=== PATIENT | male | born 1955 | race Caucasian/White ===

== ENCOUNTER → 2018-03-09 | Day surgery (SDC) | payer OTHER ==
[2018-03-02 14:18] VITALS: Ht 180.3 cm; Wt 136.4 kg
[~2018-03-09] VITALS: Ht 180.3 cm; Wt 136.4 kg
[~2018-03-09] MED LIST: ASPECOTC PO; CETI10CA PO; ENDOSCOPIC MARKER 5 ML SYR ONE; FURO-85 PO; LIDOCAINE HCL 2% 2 ML VIAL (20MG/ML) ONE; LOSA1TAB38 PO; NIFE60TA66 PO; PROPOFOL IV EMULSION 10 MG/ML 20 ML VIAL ONE; SODIUM CHLORIDE 0.9% 500ML 500 ML IV ONE
--- NOTE | 2018-03-09 14:55 | Endo History and Physical ---
History & Physical Date of Service: Mar 09, 2018. Chief Complaint: rectal bleeding Referring Physician: Dr. Ruperto Gracia History of Present Illness 62 yo CM who presents for colonoscopy secondary to rectal bleeding. Past Surgical History Hx Cardiac Surgery: No Hx Internal Defibrillator: No Hx Pacemaker: No Hx Abdominal Surgery: Yes (TONI, ) Hx of Implantable Prosthesis: No Hx Cancer Surgery: No Hx Thoracic Surgery: No Hx Orthopedic: No Hx Urinary Tract Surgery: No Family History Polyp Social History Smoking Status: Current Every Day Smoker Hx Substance Use: No Hx Alcohol Use: Yes (DRINKS 5-6 BEERS A WEEK) Allergies Coded Allergies: No Known Allergies (Verified , 03/09/18) Current Medications Reported Home Medications Medications Dose Route/Sig Max Daily Dose Days Date Category Zyrtec Allergy (Cetirizine Hcl) 10 Mg Cap 10 Mg PO DAILY 03/09/18 Reported Aspirin 325 Mg Tab 325 Mg PO UD PRN 03/02/18 Reported Nifedipine Er (Nifedipine) 60 Mg Tab 1 Tab PO DAILY 30 03/02/18 Reported Cozaar (Losartan Potassium) 100 Mg Tab 1 Tab PO DAILY 30 03/02/18 Reported Lasix (Furosemide) 20 Mg Tab 1 Tab PO DAILY 90 03/02/18 Reported Vital Signs Weight (Kilograms): 136.36 Height (Feet): 5 Height (Inches): 11 Date Time Temp Pulse Resp B/P (MAP) Pulse Ox O2 Delivery O2 Flow Rate FiO2 03/09/18 14:22 36.5 72 20 132/89 (103) 97 Room Air Physical Exam General Appearance: WD/WN, no apparent distress Respiratory/Chest: Auscultation: breath sounds normal Cardiovascular: Heart Auscultation: RRR Abdomen: Bowel Sounds: normal Inspection & Palpation: soft, non-distended, no tenderness, guarding & rebound Assessment and Plan Assessment: 62 yo CM who presents for colonoscopy secondary to rectal bleeding. Plan: Proceed with colonoscopy.
--- NOTE | 2018-03-09 16:26 | Anesthesiology Progress Note ---
Anesthesia Post Op Note Date & Time Mar 09, 2018 at 16:26 Vital Signs Pain Intensity: 0 Vital Signs Past 12 Hours Date Time Temp Pulse Resp B/P (MAP) Pulse Ox O2 Delivery O2 Flow Rate FiO2 03/09/18 16:22 86 16 149/96 (113) 97 Room Air 03/09/18 14:22 36.5 72 20 132/89 (103) 97 Room Air Notes Mental Status: alert / awake / arousable, participated in evaluation Pt Amnestic to Procedure: Yes Nausea / Vomiting: adequately controlled Pain: adequately controlled Airway Patency, RR, SpO2: stable & adequate BP & HR: stable & adequate Hydration State: stable & adequate Anesthetic Complications: no major complications apparent
--- NOTE | 2018-03-09 16:29 | GI REPORT ---
Patient Name: Ruperto Apple Procedure Date: 03/09/2018 3:25 PM Date of : 1955 Admit Type: Outpatient Age: 62 Gender: Male Attending MD: Arturo New DO Procedure: Colonoscopy Providers: Arturo New DO Referring MD: Ruperto Gracia Indications: Rectal bleeding Medicines: Monitored Anesthesia Care Complications: No immediate complications. Estimated Blood Loss: Estimated blood loss: none. Procedure: Pre-Anesthesia Assessment: - Prior to the procedure, a History and Physical was performed, and patient medications and allergies were reviewed. The patient's tolerance of previous anesthesia was also reviewed. The risks and benefits of the procedure and the sedation options and risks were discussed with the patient. All questions were answered, and informed consent was obtained. Prior Anticoagulants: The patient has taken aspirin, last dose was 1 day prior to procedure. ASA Grade Assessment: III - A patient with severe systemic disease. After reviewing the risks and benefits, the patient was deemed in satisfactory condition to undergo the procedure. After I obtained informed consent, the scope was passed under direct vision. Throughout the procedure, the patient's blood pressure, pulse, and oxygen saturations were monitored continuously. The scope was introduced through the anus and advanced to the cecum, identified by appendiceal orifice and ileocecal valve. The colonoscopy was performed with moderate difficulty due to a tortuous colon and the patient's body habitus. Procedure was 40 minutes in duration, over twice the length of normal colonoscopy. Successful completion of the procedure was aided by changing the patient to a prone position. The patient tolerated the procedure well. The quality of the bowel preparation was good. The ileocecal valve and the appendiceal orifice were photographed. Findings: The perianal and digital rectal examinations were normal. A 10 mm polypoid lesion was found in the transverse colon approximately 100 cm from the anal verge. The lesion was semi-sessile. No bleeding was present. Biopsies were taken with a cold forceps for histology. Area was tattooed with an injection of 2 mL of Danielle ink just distal to the lesion. A 10 mm polypoid lesion was found in the transverse colon approximately 90 cm from the anal verge. The lesion was semi-sessile. No bleeding was present. Biopsies were taken with a cold forceps for histology. Area was tattooed with an injection of 3 mL of Danielle ink just distal to the lesion. Three sessile polyps were found in the sigmoid colon and descending colon. The polyps were 5 to 10 mm in size. These polyps were removed with a hot snare. Resection and retrieval were complete. Localized severe inflammation characterized by erythema, loss of vascularity and confluent ulcerations was found in the recto-sigmoid colon. Biopsies were taken with a cold forceps for histology. Several random biopsies were obtained with cold forceps for histology in the descending colon, in the transverse colon and in the ascending colon. Fluid aspiration for Stool studies was performed in the entire colon. Impression: - Rule out malignancy, polypoid lesion in the transverse colon. Biopsied. Tattooed. - Rule out malignancy, polypoid lesion in the transverse colon. Biopsied. Tattooed. - Three 5 to 10 mm polyps in the sigmoid colon and in the descending colon, removed with a hot snare. Resected and retrieved. 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 Biopsied. - Several random biopsies were obtained in the descending colon, in the transverse colon and in the ascending colon. - Fluid aspiration was performed. Recommendation: - Resume previous diet. - Use prednisone 40 mg PO once a day for 1 week, then decrease by 5 mg every week for a total 8 week taper. - Repeat colonoscopy in 3 months to assess disease activity. - Return to GI office at appointment to be scheduled. Arturo New DO 03/09/2018 4:28:34 PM This report has been signed electronically. Note Initiated On: 03/09/2018 3:25 PM Number of Addenda: 0 I attest to the content of the Intraoperative Record and orders documented therein, exceptions below {[id number]}
--- NOTE | 2018-03-09 16:37 | Discharge Instructions ---
Endoscopy Patient Instructions Date / Procedure(s) Performed Mar 09, 2018. Colonoscopy Allergy Information Coded Allergies: No Known Allergies (Verified , 03/09/18) Discharge Date / Findings Mar 09, 2018. Ulcerative proctosigmoiditis Colon polyps (3 removed) Colon polyps (2 tattooed and biopsied) Random colon biopsies Stool studies Medication Instructions Stopped Medication(s): last dose ASA 5-6 days ago 1) Prednisone 40mg by mouth daily for 7 days, then 35 mg by mouth daily for 7 days, then decrease by 5 mg every week until finished (Total 8 week taper). 2) OK to resume all medications today as prescribed Reported Home Medications Medications Dose Route/Sig Max Daily Dose Days Date Category Zyrtec Allergy (Cetirizine Hcl) 10 Mg Cap 10 Mg PO DAILY 03/09/18 Reported Aspirin 325 Mg Tab 325 Mg PO UD PRN 03/02/18 Reported Nifedipine Er (Nifedipine) 60 Mg Tab 1 Tab PO DAILY 30 03/02/18 Reported Cozaar (Losartan Potassium) 100 Mg Tab 1 Tab PO DAILY 30 03/02/18 Reported Lasix (Furosemide) 20 Mg Tab 1 Tab PO DAILY 90 03/02/18 Reported Provider Instructions Activity Restrictions - No exercising or heavy lifting for 24 hours. - Do not drink alcohol the day of the procedure. - Do not drive a car or operate machinery until the day after the procedure. - Do not make any important decisions or sign important papers in 24 hours after the procedure. Following Day: - Return to full activity which may include returning to work/school. Diet Start your diet with liquids and light foods (jello, soup, juice, toast). Then eat your usual diet if not nauseated. Treatment For Common After Affects For mild abdominal pain, bloating, or excessive gas: - Rest - Eat lightly - Lie on right side Follow-Up Information Follow-up in our office in 2 weeks. Anesthesia Information What You Should Know You have had a procedure that required some medicine to reduce anxiety and discomfort. This treatment is called moderate sedation. After receiving the treatment, you may be sleepy, but you will be able to breathe on your own. The effects of the treatment may last for several hours. Follow these instructions along with Activity/Diet recommendations noted above: * Do NOT do anything where dizziness or clumsiness would be dangerous. * Rest quietly at home today, then you can be up and about tomorrow. * Have a responsible person stay with you the rest of today. * You may have had an I.V. today. If so, you may take the dressing off later today. Recommendations Call your doctor if: * Trouble breathing * Continuous vomiting for more than 24 hours * Temperature above 101 degrees * Severe abdominal pain or bloating * Pain not relieved by pain medicine ordered * There is increased drainage or redness from any incision * A large amount of rectal bleeding greater than 2-3 tablespoons. (If you had a polyp/s removed or have hemorrhoids, a small amount of blood - from the rectum is to be expected.) * You have any unanswered questions or concerns. IN THE EVENT OF A SERIOUS EMERGENCY, GO TO THE NEAREST EMERGENCY ROOM Your discharge instructions were prepared by provider Arturo New. Patient Instructions Signature Page Ruperto Apple Patient (or Guardian) Signature/Date: I have read and understand the instructions given to me by my caregivers. Caregiver/RN/Doctor Signature/Date: The above-named patient and/or guardian has received patient instructions on this date. + Original Patient Signature Page (only) stays with chart. Please make copy for patient.
[2018-03-09 16:44] VITALS: BP 151/97; PULSE 82; O2SAT 98
== END | disposition home or self-care (01) ==
LOC: C.GI 13:43
PROVIDERS: ATTEND Internal Medicine
DX: K62.5 Hemorrhage of anus and rectum (principal); D12.6 Benign neoplasm of colon, unspecified; K52.9 Noninfective gastroenteritis and colitis, unspecified; I10 Essential (primary) hypertension; E11.9 Type 2 diabetes mellitus without complications; Z90.49 Acquired absence of other specified parts of digestive tract; Z83.71 Family history of colonic polyps; F17.200 Nicotine dependence, unspecified, uncomplicated; Z79.82 Long term (current) use of aspirin; Z79.899 Other long term (current) drug therapy

== ENCOUNTER → 2018-03-12 | Outpatient (CLI) | payer OTHER ==
[~2018-03-12] MED LIST changes: -ENDOSCOPIC MARKER 5 ML SYR ONE; -LIDOCAINE HCL 2% 2 ML VIAL (20MG/ML) ONE; -PROPOFOL IV EMULSION 10 MG/ML 20 ML VIAL ONE; -SODIUM CHLORIDE 0.9% 500ML 500 ML IV ONE
[2018-03-12 13:20] LABS: BASO % 0.1 %; BASO ABS # 0.01 K/uL (0-0.2); EOS % 0.1 %; EOS ABS # 0.01 K/uL (0-0.5); HEMATOCRIT 43.5 % (42-52); HEMOGLOBIN 14.4 g/dL (14.0-18.0); IG# 0.07 K/uL (0.00-0.02); LYMPH % 11.1 %; LYMPH ABS # 1.69 K/uL (1.2-3.4); MEAN CELL VOLUME 90.1 fL (80-100); MEAN CORPUSCULAR HEMOGLOBIN 29.8 pg (25-34); MEAN CORPUSCULAR HGB CONC 33.1 g/dl (32-36); MEAN PLATELET VOLUME 10.2 fL (7.4-10.4); MONO % 5.5 %; MONO ABS # 0.83 K/uL (0.11-0.59); NEUT % 82.7 %; NEUT ABS # 12.59 K/uL (1.4-6.5); PLATELET COUNT 366 K/uL (130-400); RED CELL DISTRIBUTION WIDTH CV 13.8 % (11.5-14.5); RED CELL DISTRIBUTION WIDTH SD 45.2 fL (36.4-46.3)
[2018-03-12 14:14] LABS: ALBUMIN 3.6 gm/dl (3.4-5.0); ALT/SGPT 30 U/L (12-78); AST/SGOT 11 U/L (15-37); BLOOD UREA NITROGEN 11 mg/dl (7-18); CALCIUM 8.8 mg/dl (8.5-10.1); CARBON DIOXIDE 25 mmol/L (21-32); CREATININE 1.14 mg/dl (0.60-1.40); GLUCOSE 114 mg/dl (70-99); POTASSIUM 3.2 mmol/L (3.5-5.1); SODIUM 138 mmol/L (136-145)
[2018-03-12 14:17] LABS: ALKALINE PHOSPHATASE 131 U/L (45-117); CHOLESTEROL 210 mg/dl (0-200); LDL CHOLESTEROL CALCULATED 142 mg/dl; TOTAL PROTEIN 7.7 gm/dl (6.4-8.2)
== END | disposition home or self-care (01) ==
LOC: C.LABMFLN 08:16
PROVIDERS: ATTEND Internal Medicine
DX: E78.5 Hyperlipidemia, unspecified (principal); D12.6 Benign neoplasm of colon, unspecified; I10 Essential (primary) hypertension; K92.2 Gastrointestinal hemorrhage, unspecified; K51.30 Ulcerative (chronic) rectosigmoiditis without complications; R10.9 Unspecified abdominal pain

== ENCOUNTER → 2018-03-16 | Outpatient (CLI) | payer OTHER ==
[~2018-03-16] MED LIST changes: +OPTIRAY 320 IV PRN
--- NOTE | 2018-03-16 14:47 | DIAGNOSTIC IMAGING REPORT ---
ABDOMEN AND PELVIS CT WITH IV AND ORAL CONTRAST CT DOSE: 1098.14 mGycm HISTORY: Acute generalized abdominal pain with rectal bleeding. ABDOMINAL CRAMPING TECHNIQUE: Multiaxial CT images of the abdomen and pelvis were performed following the use of intravenous and oral contrast. A dose lowering technique was utilized adhering to the principles of ALARA. COMPARISON STUDY: None. FINDINGS: Pleural-based nodules of the posterior basal segment right lower lobe measure up to 6 mm. Additional nonpleural-based nodules of the basal right lower lobe measure up to 3 mm. 2 mm solid nodule of the right middle lobe. 4 mm solid nodule of the inferior segment lingula. 2 mm solid nodule of the basal left lower lobe. No pneumatosis or pneumoperitoneum. Coronary arterial calcifications are noted. The imaged inferior cardiac chambers are otherwise unremarkable. Prior cholecystectomy. The liver, spleen, pancreas and left adrenal gland are unremarkable. 8 mm nodule of the medial limb right adrenal gland is indeterminate and soft tissue attenuating. Kidneys, ureters and bladder are unremarkable. Prostate is mildly enlarged with central calcifications. Soft tissues are unremarkable. No bowel obstruction or focal bowel wall thickening. Mildly prominent perirectal fat and vasculature is noted with mild circumferential rectal distal sigmoid colon wall thickening. Scattered perirectal lymph nodes measure up to 5 mm with lymph nodes about the mid to distal sigmoid colon measuring up to 7 mm. Nondistention of the sigmoid colon with out evidence of acute inflammatory changes. No ascites. Normal appendix. Soft tissues are unremarkable. Bones appear intact. Healed chronic right-sided rib fractures. IMPRESSION: 1. No acute intra-abdominal or intrapelvic abnormality identified. 2. Mild circumferential wall thickening of the rectum and distal sigmoid colon with mildly prominent perirectal and pericolonic vasculature and scattered lymph nodes, suggesting chronic inflammatory changes. Correlate with colonoscopy findings. No pneumoperitoneum or pneumatosis. 3. Prior cholecystectomy. 4. Scattered solid noncalcified nodules of the lung bases measuring up to 6 mm. Please refer to below summary of Fleischner criteria recommendations for follow-up of incidental CT nodules (Daniel Cornejo, Guidelines for management of small pulmonary nodules detected on CT scans: A statement from the Fleischner Society, Radiology 237: [phone].) SOLID NODULES Multiple nodules size: <6 mm * Low risk patients: no routine follow-up * high risk patients: optional CT at 12 months Multiple nodules size: 6-8 mm * Low risk patients: follow-up at 3-6 months, then consider further follow-up at 18-24 months * high risk patients: follow-up at 3-6 months, then at 18-24 months if no change Note: newly detected indeterminate nodule in persons 35 years of age or older. * Low risk patients: minimal or absent history of smoking and/or other known risk factors * high risk patients: history of smoking or of other known risk factors (e.g. first degree relative with lung cancer, or exposure to asbestos, radon, uranium) * if a nodule up to 8 mm is partly solid or is ground glass further follow-up is required after 24 months to exclude possible slow growing adenocarcinoma (KIRSTIN) The above report was generated using voice recognition software. It may contain grammatical, syntax or spelling errors. Electronically signed by: Donny Palencia M.D. 03/16/2018 2:46 PM Dictated Date/Time: 03/16/2018 2:36 PM
== END | disposition home or self-care (01) ==
LOC: C.CTS 14:19
PROVIDERS: ATTEND Internal Medicine
DX: K51.30 Ulcerative (chronic) rectosigmoiditis without complications (principal); K92.2 Gastrointestinal hemorrhage, unspecified; R10.9 Unspecified abdominal pain